=== PATIENT | female | born 1960 | race Caucasian/White ===

== ENCOUNTER 2021-12-17 12:10 | Emergency (ER) | payer SELFPAY ==
[~2021-12-17] VITALS: Ht 157.5 cm; Wt 82.1 kg
[2021-12-17 12:32] VITALS: BP_SYST 177
--- NOTE | 2021-12-17 13:31 | NUR ---
Pt presents to the ER Bib self from home. CC High blood pressure. Pt states since Wednesday bp readings have been 177/90 with headache and general off felling. Pt states feeling flush. 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 Pt currently on Lisinopril and HCTZ.
[2021-12-17 13:34] LABS: BASOPHILS % (AUTO) 0.5 % (0.0-2.0); EOSINOPHILS # (AUTO) 0.1 K/uL (0.0-0.4); EOSINOPHILS % (AUTO) 1.1 % (0.0-4.0); HEMATOCRIT 44.6 % (36-48); LYMPHOCYTES # (AUTO) 1.6 K/uL (1.0-5.5); LYMPHOCYTES % (AUTO) 19.8 % (20.5-51.5); MEAN CORPUSCULAR VOLUME 84 fL (79.0-98.0); MONOCYTES # (AUTO) 0.5 K/uL (0.0-1.0); MONOCYTES % (AUTO) 5.8 % (1.7-9.3); NEUTROPHILS # (AUTO) 5.8 K/uL (1.8-7.7); NEUTROPHILS % (AUTO) 72.8 % (40.0-70.0); PLATELET COUNT (AUTO) 231 K/uL (130-430); RED CELL DISTRIBUTION WIDTH 14.3 % (9.0-15.0)
--- NOTE | 2021-12-17 13:34 | NUR ---
ER at bedside examining patient.
[2021-12-17 14:20] LABS: ANION GAP 12 (5-15); CALCIUM 9.5 mg/dL (8.4-11.0); CHLORIDE 103 mmol/L (98-107); CREATININE 0.75 mg/dL (0.55-1.30); GLUCOSE 115 mg/dL (70-99); POTASSIUM 3.8 mmol/L (3.5-5.1); UREA NITROGEN, BLOOD 13 mg/dL (8-21)
[2021-12-17 14:27] LABS: GFR AFRICAN AMERICAN 101 mL/min (>90)
[2021-12-17 14:31] LABS: ALANINE AMINOTRANSFERASE 50 U/L (12-78); ALBUMIN 3.8 g/dL (3.4-4.8); ASPARTATE AMINOTRANSFERASE 29 U/L (10-37); TOTAL BILIRUBIN 1.1 mg/dL (0.0-1.0)
--- NOTE | 2021-12-17 14:49 | NUR ---
BP 142/73 pt at rest in bed with daughter bedside.
[2021-12-17] MEDS ORDERED: CLON1PAT10 TD (15:22)
--- NOTE | 2021-12-17 15:33 | NUR ---
Patient given written and verbal discharge instructions and verbalizes understanding. ER MD discussed with patient the results and treatment provided. Patient in stable condition. ID arm band removed. Rx of Clonidine patch given. Opportunity for questions provided and answered. Medication side effect fact sheet provided.
[2021-12-17 15:34] VITALS: BP_SYST 129
== END 2021-12-17 15:33 | disposition home or self-care (01) ==
LOC: SED 12:10
DX: I16.0 Hypertensive urgency (principal); I10 Essential (primary) hypertension; R07.9 Chest pain, unspecified; Z79.899 Other long term (current) drug therapy
CPT/HCPCS: 36415; 71045; 80053; 83880; 84484; 85025; 93005; 99285